=== PATIENT | male | born 1990 | race Caucasian/White ===

== ENCOUNTER 2017-11-11 15:48 | Emergency (ER) | payer OTHER ==
[~2017-11-11] VITALS: Ht 172.7 cm; Wt 90.7 kg
[2017-11-11] MEDS ORDERED: ERYT1OIN RIGHTEYE (16:29)
== END 2017-11-11 16:35 | disposition home or self-care (01) ==
LOC: ER 15:48
DX: T15.01XA Foreign body in cornea, right eye, initial encounter (principal); F17.220 Nicotine dependence, chewing tobacco, uncomplicated; Z91.030 Bee allergy status; W45.8XXA Other foreign body or object entering through skin, initial encounter
CPT/HCPCS: 99283

== ENCOUNTER 2017-12-05 09:20 | Emergency (ER) | payer OTHER ==
[~2017-12-05] VITALS: Ht 172.7 cm; Wt 88.9 kg
[~2017-12-05 09:20] MED LIST: ERYT1OIN RIGHTEYE
== END 2017-12-05 10:12 | disposition home or self-care (01) ==
LOC: ER 09:20
DX: T63.441A Toxic effect of venom of bees, accidental (unintentional), initial encounter (principal); H02.844 Edema of left upper eyelid; Z91.030 Bee allergy status; F17.220 Nicotine dependence, chewing tobacco, uncomplicated
CPT/HCPCS: 99282; J1100

== ENCOUNTER 2020-02-03 11:50 | Emergency (ER) | payer SELFPAY ==
[~2020-02-03] VITALS: Ht 172.7 cm; Wt 100.5 kg
== END 2020-02-03 14:10 | disposition home or self-care (01) ==
LOC: ER 11:50
DX: S66.912A Strain of unspecified muscle, fascia and tendon at wrist and hand level, left hand, initial encounter (principal); F17.220 Nicotine dependence, chewing tobacco, uncomplicated; Z91.030 Bee allergy status; V49.40XA Driver injured in collision with unspecified motor vehicles in traffic accident, initial encounter; Y92.410 Unspecified street and highway as the place of occurrence of the external cause
CPT/HCPCS: 73110; 99284-25

== ENCOUNTER 2022-01-29 09:21 | Emergency (ER) | payer BC, OTHER ==
[~2022-01-29] VITALS: Ht 172.7 cm; Wt 106.6 kg
[2022-01-29] MEDS ORDERED: CYCL10 PO (12:04)
== END 2022-01-29 12:16 | disposition home or self-care (01) ==
LOC: ER 09:21
DX: M54.50 Low back pain, unspecified (principal); G89.29 Other chronic pain; F17.210 Nicotine dependence, cigarettes, uncomplicated; Z91.030 Bee allergy status
CPT/HCPCS: 72100; 96372; 99283-25; A9270; J1885

== ENCOUNTER 2022-02-01 06:22 | Emergency (ER) | payer BC, OTHER ==
[~2022-02-01] VITALS: Ht 172.7 cm; Wt 106.6 kg
[~2022-02-01 06:22] MED LIST changes: +CYCL10 PO
[2022-02-01 09:07] LABS: Bun/Creatinine Ratio 12.8 (12.0-20.0); Calcium, Blood 9.8 mg/dL (8.5-10.1); Creatinine, Blood 1.48 mg/dL (0.60-1.20); Magnesium, Blood 1.8 mg/dL (1.6-2.4); Potassium, Blood 4.7 mmol/L (3.5-5.5)
[2022-02-01] MEDS ORDERED: ONDA4ODT MM (09:37)
== END 2022-02-01 09:51 | disposition home or self-care (01) ==
LOC: ER 06:22
PROVIDERS: Student in an Organized Health Care Education/Training Program
DX: R11.2 Nausea with vomiting, unspecified (principal); R19.7 Diarrhea, unspecified; F17.220 Nicotine dependence, chewing tobacco, uncomplicated; Z91.038 Other insect allergy status
CPT/HCPCS: 80048; 83735; 96365; 96372-59; 96375; 99284-25; A9270; J1790; J1885; J3475; J7030

== ENCOUNTER 2022-11-04 21:03 | Emergency (ER) | payer OTHER ==
[~2022-11-04] VITALS: Ht 172.7 cm; Wt 97.5 kg
[~2022-11-04 21:03] MED LIST changes: +ONDA4ODT MM
[2022-11-04 21:35] VITALS: BP 137/79
== END 2022-11-04 23:04 | disposition home or self-care (01) ==
LOC: ER 21:03
DX: M25.561 Pain in right knee (principal); F17.220 Nicotine dependence, chewing tobacco, uncomplicated; Z91.030 Bee allergy status
CPT/HCPCS: 99283